=== PATIENT | male | born 1965 | race Two or more races ===

== ENCOUNTER 2016-10-30 09:56 | Day surgery (SDC) | payer OTHER ==
[2016-10-22 15:26] VITALS: BMI 26.6
[2016-10-30 10:34] VITALS: RESP 16; TEMP 97.7
[2016-10-30] MEDS: LACTATED RINGERS 1,000 ML IV ONE ×2 (10:39→10:59)
[2016-10-30] MEDS ORDERED: MIDAZOLAM 2 MG/2 ML VIAL ONE (11:05)
[2016-10-30] MEDS ORDERED: fentaNYL (PF) 50 MCG/ML 2 ML AMP ONE (11:05)
--- NOTE | 2016-10-30 11:19 | P.PCN ---
Date of Procedure: 10/30/16 Anesthesia: MAC Surgeon: Eduard Mackenzie Pathology: none sent Condition: stable Disposition: PACU Description of Procedure: PREOPERATIVE DIAGNOSIS: Cervical spondylosis without myelopathy, cervicogenic headache. POSTOPERATIVE DIAGNOSIS: same PROCEDURES: Diagnostic right C4, C5, C6 medial branch with fluoroscopic guidance ANESTHESIA: Local with 1% lidocaine; IV sedation with Versed and fentanyl EBL: Minimal PROCEDURE INDICATION: This is a patient with neck pain and headaches secondary to cervical arthropathy unresponsive to more conservative treatments. Patient had essentially no relief from cervical epidural steroid injection two months ago, presents for cervical MBB today. No use of blood thinners. PROCEDURE DESCRIPTION / TECHNIQUE: The patient was seen and identified in the preoperative area. Risks, benefits, complications, and alternatives were discussed with the patient (including but not limited to incomplete pain relief , bleeding, infection, nerve damage, and allergies to medications), the patient agreed to proceed with the procedure and signed the consent after all questions were answered. IV was started. Vital signs remained stable throughout the procedure. Patient was taken to the OR and time out was completed. The patient was placed in the prone position on the procedure table. A pillow was placed under the patients chest to increase the cervical interlaminar space. The cervical area was prepped and draped in the usual sterile fashion. Critical pause was taken. Vital signs were closely monitored during the procedure. Conscious sedation was used during the procedure to decrease patients anxiety. Using cross-table lateral fluoroscopy, the centroid of the trapezoid of right C4 , was identified, marked, and localized with 1% lidocaine. Subsequently, a 22 G spinal needle was advanced guided by fluoroscopy to the centroid of the trapezoid of C4. Needle tip position was confirmed at the centroid of the trapezoids of C4 with anteroposterior fluoroscopy. Subsequently, 1 ml of a 3 ml combination of 40 mg Kenalog and 2 ml of preservative-free Bupivacaine 0.5% was injected after negative aspiration for blood and CSF. Needle was then removed intact the same procedure was repeated at the right C5 and C6 levels. Needle was removed intact at each level, skin was cleansed, and bandages were applied. COMPLICATIONS: No acute complications. COMMENTS: DISPOSITION / PLANS: The patient was placed in a supine position and transferred to the recovery area in a stable condition for observation and was discharged from the recovery room after meeting discharge criteria. Home discharge instructions given to the patient by the staff. The patient was reexamined prior to discharge and there were no issues. The patient will schedule a follow up in clinic in 4-6 weeks.
[2016-10-30] MEDS ORDERED: IV FLUID CONTINUATION 1,000 ML IV ONE (11:32)
[2016-10-30] MEDS ORDERED: LACTATED RINGERS 1,000 ML IV SCH (12:15)
--- NOTE | 2016-10-30 12:20 | FL ---
EXAMINATION TYPE: FL guided pain mgmt statistic DATE OF EXAM: 10/30/2016 11:27 AM HISTORY: Pain rt side cervical facets 6 sec. fl time used
[2016-10-30 12:32] VITALS: BP 98/66; PULSE 68
== END 2016-10-30 12:43 | disposition home or self-care (01) ==
LOC: ORPAIN 09:56
PROVIDERS: ATTEND Anesthesiology
DX: M47.812 Spondylosis without myelopathy or radiculopathy, cervical region (principal); R51 Headache; I10 Essential (primary) hypertension; E78.5 Hyperlipidemia, unspecified; Z79.1 Long term (current) use of non-steroidal anti-inflammatories (NSAID); Z79.82 Long term (current) use of aspirin; Z79.891 Long term (current) use of opiate analgesic; Z79.899 Other long term (current) drug therapy
CPT/HCPCS: 64490; 64491; 64492; J2250; J3010

== ENCOUNTER → 2016-12-04 | Outpatient (CLI) | payer OTHER ==
[2016-12-04 14:50] VITALS: BP 123/87; PULSE 78; RESP 16
--- NOTE | 2016-12-05 19:02 | P.PN ---
Subjective This is follow-up visit for this patient with a history of severe and chronic neck pain, we have done interventional pain management injection, cervical epidural steroid injections under fluoroscopy guidance, and the patient reported that he had 0 benefit from an, and later on we did diagnostic medial branch blocks cervical area, and patient also had 0 benefit from from the medial branch block,, patient had MRI of the cervical spine which showed that patient had C6 7 posterior disc spur , and is currently on pain medications Physical Examinations : 1-Constitutiona : Cooperative , not in acute distress . 2-HEENT : nech ; supple , no Lymphadenopathy , no Thyromegaly , normal thyroid size . eyes : no ptosis , no icterus, no photophobia . ENT : normal of hearing , normal oropharynx , no Thrush . 3- Respiratory : Chest clear to auscultations Bilaterally , no wheezing , no Rhonchi . 4- Cardiovascular : regular rate and rhythem , S1 , S2 , no S3 , no S4. 5- Gastrointestinal : abdomen soft no tenderness , bowel sounds positive all four quadrents , no organomegally . 6- Genitourinary : Defferred . 7- neurologic : Cranial nerve II to XII intact , no focal neurological deffecit . 8-psychatric : alert , oriented X 3 , appropriate affect , intact judgment and insight . 9-Lymphatic : no Lymphadenopathy . 10- musculoskeltal : exams of the cervical spine = motor strength normal bilateral upper extremities facet loading test cervical area positive. exams of the Lumber spine = motor strength lower extremities ,thigh and legs .5/5 Assessment and plan = Cervical radiculopathy, cervical degenerative disc disease , patient had cervical epidural steroid injections and diagnostic medial branch block , Patient had no benefit from either , and patient is not a candidate for radiofrequency ablation of the medial branch , he had physical therapy in the past And he had no benefit from it, patient preferred to pursue the surgical option, and he wanted discussed the surgery with Dr. Levy - -medication management =1-Motrin 800 mg every 8 hours 2-[place] 7,5/325 every 6 hours Patient tried Neurontin and Zanaflex and baclofen none of them helped his pain Objective - Vital Signs Vital signs: Vital Signs Temp Pulse 78 12/04/16 14:40 Resp 16 12/04/16 14:40 BP 123/87 12/04/16 14:40 Pulse Ox 98 12/04/16 14:40 Intake & Output 12/04/16 12/05/16 12/05/16 18:59 06:59 18:59 Weight 79.379 kg
== END | disposition home or self-care (01) ==
LOC: PNWHC3 14:17
PROVIDERS: ATTEND Specialist
DX: M54.12 Radiculopathy, cervical region (principal); M50.30 Other cervical disc degeneration, unspecified cervical region; M46.02 Spinal enthesopathy, cervical region; Z79.899 Other long term (current) drug therapy
CPT/HCPCS: 99211

== ENCOUNTER → 2017-02-03 | Outpatient (CLI) | payer OTHER ==
[2017-02-03 13:25] VITALS: BP 119/84; PULSE 74; RESP 16
--- NOTE | 2017-02-03 13:52 | P.PN ---
Subjective This is follow-up visit for this patient with a history of severe and chronic neck pain, secondary to cervical disc protrusion and cervical spondylosis with cervical facet arthropathy, we have done interventional pain management injection, cervical epidural steroid injection and patient had no benefit from it, and later on we did, diagnostic medial branch block , and he did not benefit from the diagnostic medial branch block his pain was the same before and after the block, for this reason we did not proceed with the radiofrequency ablation of the medial branch, patient was referred to spine surgeon Dr. Levy, and the Dr. Levy he did not recommend surgical interventions , recommended physical therapy and neck braces, patient reported that he tried physical therapy and he did not benefit from it, he tried neck brace and it caused more pain, and he stopped using it , and his currently using pain medication 1-[place] 7.5/325-6 hours 2-Motrin 800 mg every 8 hours Patient denies any side effects of the medication, denies excessive drowsiness or sleepiness, denies suicidal ideation, and reports that the current pain medication is NOT helping To control the pain and improve activity of daily living Patient denies any motor or sensory deficit , patient denies any fever or night sweats, denies any change in the bowel movements or urination Physical Examinations : 1-Constitutiona : Cooperative , not in acute distress . 2-HEENT : nech ; supple , no Lymphadenopathy , no Thyromegaly , normal thyroid size . eyes : no ptosis , no icterus, no photophobia . ENT : normal of hearing , normal oropharynx , no Thrush . 3- Respiratory : Chest clear to auscultations Bilaterally , no wheezing , no Rhonchi . 4- Cardiovascular : regular rate and rhythem , S1 , S2 , no S3 , no S4. 5- Gastrointestinal : abdomen soft no tenderness , bowel sounds positive all four quadrents , no organomegally . 6- Genitourinary : Defferred . 7- neurologic : Cranial nerve II to XII intact , no focal neurological deffecit . 8-psychatric : alert , oriented X 3 , appropriate affect , intact judgment and insight . 9-Lymphatic : no Lymphadenopathy . 10- musculoskeltal : exams of the cervical spine = motor strength normal bilateral upper extremities facet loading test cervical area positive. exams of the Lumber spine = motor strength lower extremities ,thigh and legs .5/5 Assessment and plan = - Chronic neck pain pain secondary to cervical bulging disc disease , cervical spondylosis with facet arthropathy without myelopathy Status post cervical epidural steroid injection without any benefit and he had no benefit from the diagnostic medial branch block Patient was evaluated by a spine surgeon and he did not recommend surgical intervention , he tried physical therapy without benefit He tried neck brace without any benefit We'll refer him for a TENS unit trial , hopefully this will help to improve his pain control - chronic and current use of high-risk medication (Opioids). The patient was counseled about risk of opioid use, psychological risk associated with opioids and was orally counseled to not overuse , divert,or sell dictations to take medications as prescribed only , and to restore medication in safe location , and the patient counseled against driving while using narcotic medications, and also not to use alcohol or any illicit recreational drugs, the patient's verbalized understanding that the lack of compliance will result in failure to renew narcotic prescription ,and possible discharge from the clinic - diagnoses, prognosis, and treatment options including but not limited to physical therapy, surgical interventions, interventional therapies , and medication management including narcotics and adjuvant medication were discussed with the patient and all The questions answered Patient given prescription [place] 10/325 every 6 hours dispensed 90 with 1 refill , Motrin 800 mg every 8 hours dispense 90 with 1 refill Patient will be started on Lyrica 25 mg 3 times a day and he will follow up with the pain clinic in 2 months Objective - Vital Signs Vital signs: Vital Signs Temp Pulse 74 02/03/17 13:21 Resp 16 02/03/17 13:21 BP 119/84 02/03/17 13:21 Pulse Ox Intake & Output 02/02/17 02/03/17 02/03/17 18:59 06:59 18:59 Weight 79.379 kg
== END | disposition home or self-care (01) ==
LOC: PNWHC3 12:24
PROVIDERS: ATTEND Specialist
DX: M50.20 Other cervical disc displacement, unspecified cervical region (principal); M47.812 Spondylosis without myelopathy or radiculopathy, cervical region; M46.92 Unspecified inflammatory spondylopathy, cervical region; Z79.891 Long term (current) use of opiate analgesic; G89.29 Other chronic pain
CPT/HCPCS: 99211

== ENCOUNTER → 2017-03-31 | Outpatient (CLI) | payer OTHER ==
[2017-03-31 13:38] VITALS: BP 120/84; PULSE 64; RESP 16; TEMP 98.5
--- NOTE | 2017-04-01 09:56 | P.PN ---
Subjective this is follow-up visit for this 51 years old male, chronic history of severe neck pain, diagnosed with cervical degenerative disc disease and cervical spondylosis, done cervical epidural steroid injections, continue to have severe neck pain, also we have done diagnostic medial branch block cervical area, he had no benefit from it. For this reason we did not do the radiofrequency ablation of the medial branch cervical area, also the patient was referred for physical therapy ,and TENS unit. He had no benefit from it Was referred for evaluation by Dr. Levy , rhythmic spine surgeon and he did not recommend surgery, she'll continue to have severe neck pain, and is any motor or sensory deficits, as any change in the bowel movement or urination Objective - Vital Signs Vital signs: Vital Signs Temp 98.5 F 03/31/17 13:32 Pulse 64 03/31/17 13:32 Resp 16 03/31/17 13:32 BP 120/84 03/31/17 13:32 Pulse Ox Intake & Output 03/31/17 04/01/17 04/01/17 18:59 06:59 18:59 Weight 80.739 kg - Exam Physical Examinations : 1-Constitutiona : Cooperative , not in acute distress . 2-HEENT : nech ; supple , no Lymphadenopathy , normal thyroid size . eyes : no ptosis , no icterus, no photophobia . ENT : normal of hearing , normal oropharynx , no Thrush . 3- Respiratory : Chest clear to auscultations Bilaterally , no wheezing , no Rhonchi . 4- Cardiovascular : regular rate and rhythem , S1 , S2 , no S3 , no S4. 5- Gastrointestinal : abdomen soft no tenderness , bowel sounds positive all four quadrents , no organomegally . 6- Genitourinary : Defferred . 7- neurologic : Cranial nerve II to XII intact , no focal neurological deffecit . 8-psychatric : alert , oriented X 3 , appropriate affect , intact judgment and insight . 9-Lymphatic : no Lymphadenopathy . 10- musculoskeltal : cervical spine = motor stregnth in the deltoid and biceps, motor stregnth biceps and the wrist extensors (C6) . motor stregnth in the triceps muscle . deep tendon reflexes normal at the biceps , l normal at Brachioradialis normal at the triceps positive cervical facet loading test , Lumber spine = normal moter stegnth lower extremities ,thigh and legs .5/5 Assessment and Plan Plan: Assessment and plan = -Chronic neck pain secondary to cervical degenerative disc disease , cervical spondylosis with cervical facet arthropathy without myelopathy . -. She had no benefit from cervical epidural steroid injections and had no benefit from diagnostic medial branch block cervical area, no benefit from the physical therapy, spine surgeon did not recommend surgery, patient had no benefit from TENS unit -chronic and current use of high-risk medication (Opioids). -Patient denies any side effect of the medication, and the current medication helped the patient to control the pain and improve activity of daily living, The patient was counseled about risk of opioid use, psychological risk associated with opioids discussed with the patient, body mass index and exercise. Patient signed the narcotic agreement , and was orally counseled not to overuse , abuse , divert, or sell medications ,and take them as prescribed only , and the patient was counseled against driving and while you are using the narcotic medication also not to use alcohol or any illicit drugs and the patient verbalized understanding that lack of compliance and could result in failure to renew narcotics prescriptions and possible discharge from the clinic - diagnoses, prognosis, and treatment options including but not limited to physical therapy, surgical interventions, interventional therapies and medication management including narcotics and adjuvant medication were discussed with the patient and all questions answered to the patient's satisfaction. -medication refile =1-Increase Lyrica to 50 mg 3 times a day ( [place] 25 mg 3 times a day ) 2-continue [place] 10/325 every 6 hours, dispense 90 3-continue Motrin 800 mg 3 times a day UDS orderd today -procedure=none Time with Patient: Less than 30
== END ==
LOC: PNWHC3 13:01
PROVIDERS: ATTEND Specialist
DX: M50.30 Other cervical disc degeneration, unspecified cervical region (principal); M47.812 Spondylosis without myelopathy or radiculopathy, cervical region; M46.82 Other specified inflammatory spondylopathies, cervical region; Z79.891 Long term (current) use of opiate analgesic
CPT/HCPCS: 80307; G0480 ×2; G0463; 80349; 80356; 99211

== ENCOUNTER → 2017-04-29 | Outpatient (CLI) | payer OTHER ==
[2017-04-29 15:06] VITALS: BP 131/87; PULSE 73; RESP 18; TEMP 98.6
--- NOTE | 2017-04-29 15:19 | P.PN ---
Progress Note - Text Patient returns for followup for chronic neck pain with radiation to left arm. Patient underwent DORETHA and CMBB x 1, which provided very little relief. Patient continues on [place] medications for pain with some relief and Lyrica was increased at last visit with some benefit. Patient denies adverse drug effects from medications. Today, pt denies new-onset weakness, bowel/bladder incontinence, or any other signs or symptoms of cauda equina syndrome. There are no signs of acute intoxication, and no indications of medication diversion or overuse. In addition to above, 13-point review of systems is also negative for chest pain , shortness of breath, changes in vision, changes in hearing, new onset weakness , abdominal pain, diarrhea, extreme fatigue, malaise, fever, skin changes, homicidal or suicidal ideation, or bowel or bladder incontinence. Vital Signs: Reviewed in EMR Gen: WDWN, AAOx3, NAD HEENT: NCAT, EOMI, hearing grossly normal Pulm: resp unlabored Abd: soft, NT, ND Neck: supple, trachea midline Cervical paravertebral tenderness: + Cervical Facet tenderness: + bilateral, R >> L Spurling's: neg Upper extremity: decreased landscape and yardwork laborer strength secondary to pain Neuro: CN II-XII grossly intact, muscle strength lower extremities PRESERVED Imaging: Reviewed in EMR Assessment: 1. cervical spondylosis 2. cervical DDD 3. chronic pain syndrome Plan: 1. Explanation: Opioid and psychological risk scores were reviewed. Diagnoses , prognoses, and multiple treatment options including but not limited to physical therapy, interventional therapies, adjuvant medical therapies, narcotic medication therapies, and surgery were discussed with the patient and all questions were answered to the patient's satisfaction. 2. Opioid agreement: Patient has previously signed narcotic agreement, and was orally counseled to not overuse, abuse, divert, or cell medications, and to take them as prescribed by only 1 healthcare provider. The patient was also counseled to store opioid medications in a safe and preferably locked location. Patient was also counseled against driving or operating heavy equipment while using narcotic medications and also to not use alcohol or any illicit or recreational drugs. The patient verbalized understanding that lack of compliance with any of the above and likely result in failure to renew narcotic prescriptions, possible discharge from the clinic, and possible legal ramifications thereafter if indicated. 3. Counseling: The patient was counseled extensively on SMOKING CESSATION, BODY MASS INDEX, EXERCISE. Specifically, the patient was instructed regarding the importance of smoking cessation, obesity, and exercise in the context of both chronic pain and overall health. 4. Procedures: none for now 5. Consultations: None 6. Investigations: UDS + THC; repeat today 7. Medications: [place] 10/325 #90, Motrin 800 mg #90, Lyrica 50 mg #90 with no refills 8. Disposition: f/u for re-eval in 4 weeks PQRS measures: 1-Patient's medications are documented in the chart. 2-Tobacco use is positive, counseling given 3-Patient has not had a pneumococcal vaccine. 4-Advanced care planning discussed, patient unable to give. 5-Opioid contract signed with the patient. 6-Pain positive, follow-up visit or procedure scheduled 7-Patient's blood pressure measured and documented, and patient will follow up with the primary care due to hypertension. 8-Patient's weight was measured, and body mass index ABOVE the normal limits, and counseling was done. Patient instructed to follow up with PCP. 9-Patient WAS NOT identified as an unhealthy alcohol user.
== END ==
LOC: PNWHC3 14:16
PROVIDERS: ATTEND Anesthesiology
DX: M50.30 Other cervical disc degeneration, unspecified cervical region (principal); M47.812 Spondylosis without myelopathy or radiculopathy, cervical region; G89.4 Chronic pain syndrome; Z79.891 Long term (current) use of opiate analgesic; Z79.899 Other long term (current) drug therapy
CPT/HCPCS: 80307; G0480 ×2; G0463; 80356; 80364; 99211

== ENCOUNTER → 2017-05-27 | Outpatient (CLI) | payer OTHER ==
[2017-05-27 13:48] VITALS: BP 127/87; PULSE 70; RESP 16; TEMP 97.2
--- NOTE | 2017-05-27 14:14 | P.PN ---
Progress Note - Text This is a 51-year-old gentleman with axial neck pain with a diagnosis of cervical spondylosis. The patient did not respond to cervical epidural steroid injection neither to cervical medial branch block. The patient has been receiving Lyrica, [place] 10 mg 3 times a day and Motrin 800 mg 3 times a day for his pain. The cervical spine MRI showed mild degenerative changes. The last urine drug screen showed positive THC and negative for hydrocodone. The patient claims that he was warned at that time against using marijuana and he stopped doing that. To make sure that the result of negative hydrocodone in this test is accurate we might need to send out for confirmation test with GS/ MS technique. Today I will order another urine drug screen. I will give him prescription for [place] 10 mg, however I will decrease the dose to 2 pills a day instead of 3. i will give him prescription for 1 month only, also will increase his Lyrica dose to 75 mg 3 times a day. We will see the patient next month for reevaluation.
[2017-05-28 14:26] LABS: Mis test requested (Non-blood) HEROIN
== END | disposition home or self-care (01) ==
LOC: PNWHC3 13:19
PROVIDERS: ATTEND Anesthesiology
DX: M47.812 Spondylosis without myelopathy or radiculopathy, cervical region (principal)
CPT/HCPCS: G0480; G0463; 80307; 80356; 80364; 99211

== ENCOUNTER → 2017-06-24 | Outpatient (CLI) | payer OTHER ==
[2017-06-24 13:38] VITALS: BP 114/78; PULSE 60; RESP 16
--- NOTE | 2017-06-24 13:50 | P.PN ---
Progress Note - Text This is a 51-year-old male with axial neck pain due to degenerative changes in the cervical spine. This pain did not respond to previous interventional pain procedures including cervical epidural steroid injection and cervical medial branch blocks. Patient has been getting [place] twice a day plus Lyrica and Motrin. His urine drug screen was appropriate today and positive for hydrocodone and hydromorphone. last time the patient had the wrong results of the urine drug screen from a different patient in his chart. I asked the patient to try to go down the Motrin to 2 pills a day if possible and we will continue with his Luana and Lyrica. The patient complains of numbness in his hands and feet for a long time and he might need an EMG test done on the upper and lower extremities however I think we might need to refer him to neurology for more evaluation. He is alert oriented 3 in no apparent distress. He does not show any drug seeking behavior. He denies any suicidal ideation. We'll see the patient 2 months from now.
== END ==
LOC: PNWHC3 13:02
PROVIDERS: ATTEND Anesthesiology
DX: M47.812 Spondylosis without myelopathy or radiculopathy, cervical region (principal); Z79.891 Long term (current) use of opiate analgesic
CPT/HCPCS: 99211

== ENCOUNTER → 2017-10-12 | Outpatient (CLI) | payer OTHER ==
[2017-10-12 11:59] VITALS: BP 111/75; PULSE 63; RESP 16; TEMP 97.9
--- NOTE | 2017-10-12 12:13 | P.PN ---
Progress Note - Text Progress Note Date: 10/12/17 This is a 51-year-old male with history of cervical spondylosis without myelopathy and axial neck pain. The patient's pain has been relatively well controlled with a combination of [place] 10 mg twice a day and Lyrica 75 mg 3 times a day and Motrin 800 mg 2-3 times a day. The patient failed to respond to interventional pain procedures previously. His pain is worse at this time however he denies any weakness or numbness in the arms today. There are no new changes his physical exam since the last time we saw him. He denies any side effects to the [place] and he does not show any drug-seeking behavior at this time. His last urine drug screen was appropriate for the medications he takes. Today I will increase his Lyrica dose 200 mg 3 times a day and I will continue with [place] twice a day and Motrin 800 mg as needed for pain. The patient denies any paresthesia in the upper extremities or any weakness and he has not seen a neurologist. I told him it is not urgent at this point to see a neurologist because of his denial of any neurologic changes, however if any new neurologic symptoms appear then the patient may benefit from seeing a neurologist. We will see the patient 2 months from now.
== END ==
LOC: PNWHC3 11:36
PROVIDERS: ATTEND Anesthesiology
DX: M47.812 Spondylosis without myelopathy or radiculopathy, cervical region (principal); Z79.899 Other long term (current) drug therapy
CPT/HCPCS: 99211

== ENCOUNTER → 2017-12-07 | Outpatient (CLI) | payer OTHER ==
[2017-12-07 12:07] VITALS: BP 129/87; PULSE 76; RESP 16
--- NOTE | 2017-12-07 12:28 | P.PN ---
Progress Note - Text Progress Note Date: 12/07/17 This is a 52-year-old male with history of neck pain with radiation to the upper thoracic spine in between his shoulders. The patient denies any radiation of his pain to the upper extremities and he denies any numbness or tingling in the upper extremities. He also denies any bowel or bladder dysfunction. The pain gets worse by ambulation and by movement of his neck. This pain also wakes him up at night but he denies any weight loss recently. The patient has been taking [place] and Lyrica 300 mg a day and Motrin as needed for his pain. By physical exam he is alert oriented 3 in no apparent distress Neuro exam of the upper extremities within normal limits and symmetrical He has tenderness in the cervical and upper thoracic paravertebral areas and also at the spinal processes of the upper thoracic paravertebral. This patient did not respond to previous interventional pain procedures. The patient would like to try a special pillow to sleep on at night([employer] waterbase), I will also prescribe trazodone 50 mg to be taken at 1 or 2 pills at night. He is to continue using [place] twice a day ,Lyrica and Motrin as needed. We will see the patient back 2 months from now.
== END | disposition home or self-care (01) ==
LOC: PNWHC3 11:45
PROVIDERS: ATTEND Anesthesiology
DX: M54.12 Radiculopathy, cervical region (principal); Z79.891 Long term (current) use of opiate analgesic; Z79.899 Other long term (current) drug therapy; Z79.1 Long term (current) use of non-steroidal anti-inflammatories (NSAID)
CPT/HCPCS: 99211

== ENCOUNTER → 2018-02-10 | Outpatient (CLI) | payer OTHER ==
[2018-02-10 14:14] VITALS: BP 133/82; PULSE 66; RESP 18; TEMP 98.6
--- NOTE | 2018-02-10 15:02 | P.PN ---
Progress Note - Text Progress Note Date: 02/10/18 Patient returns for followup for chronic neck pain with radiation to left arm and has also had worsening numbness/tingling/[id number] sensations in bilateral feet. Patient had poor relief with two injections and does not any further procedures. Patient continues on [place] medications for pain with some relief and Lyrica was increased previously with some benefit. Patient denies adverse drug effects from medications. Today, pt denies new-onset weakness, bowel/bladder incontinence, or any other signs or symptoms of cauda equina syndrome. There are no signs of acute intoxication, and no indications of medication diversion or overuse. In addition to above, 13-point review of systems is also negative for chest pain , shortness of breath, changes in vision, changes in hearing, new onset weakness , abdominal pain, diarrhea, extreme fatigue, malaise, fever, skin changes, homicidal or suicidal ideation, or bowel or bladder incontinence. Vital Signs: Reviewed in EMR Gen: WDWN, AAOx3, NAD HEENT: NCAT, EOMI, hearing grossly normal Pulm: resp unlabored Abd: soft, NT, ND Neck: supple, trachea midline Cervical paravertebral tenderness: ++, R > L Cervical Facet tenderness: + bilateral, R > L Spurling's: neg Imaging: Reviewed in EMR Assessment: 1. cervical spondylosis 2. cervical DDD 3. chronic pain syndrome Plan: 1. Explanation: Opioid and psychological risk scores were reviewed. Diagnoses , prognoses, and multiple treatment options including but not limited to physical therapy, interventional therapies, adjuvant medical therapies, narcotic medication therapies, and surgery were discussed with the patient and all questions were answered to the patient's satisfaction. 2. Opioid agreement: Patient has previously signed narcotic agreement, and was orally counseled to not overuse, abuse, divert, or cell medications, and to take them as prescribed by only 1 healthcare provider. The patient was also counseled to store opioid medications in a safe and preferably locked location. Patient was also counseled against driving or operating heavy equipment while using narcotic medications and also to not use alcohol or any illicit or recreational drugs. The patient verbalized understanding that lack of compliance with any of the above and likely result in failure to renew narcotic prescriptions, possible discharge from the clinic, and possible legal ramifications thereafter if indicated. 3. Counseling: The patient was counseled extensively on SMOKING CESSATION, BODY MASS INDEX, EXERCISE. Specifically, the patient was instructed regarding the importance of smoking cessation, obesity, and exercise in the context of both chronic pain and overall health. 4. Procedures: none for now 5. Consultations: none 6. Investigations: UDS today 7. Medications: [place] 10/325 #60 with one refill, Motrin 800 mg #90 with two refills, Lyrica 100 mg #90 with one refill 8. Disposition: f/u for re-eval in 8 weeks. Will stop trazodone for this patient, who has history of severe marijuana abuse and dependence. I also counseled him re: tobacco use and chronic pain as indicated above. PQRS measures: 1-Patient's medications are documented in the chart. 2-Tobacco use is positive, counseling given 3-Patient has not had a pneumococcal vaccine. 4-Advanced care planning discussed, patient unable to give. 5-Opioid contract signed with the patient. 6-Pain positive, follow-up visit or procedure scheduled 7-Patient's blood pressure measured and documented, and patient will follow up with the primary care due to hypertension. 8-Patient's weight was measured, and body mass index ABOVE the normal limits, and counseling was done. Patient instructed to follow up with PCP. 9-Patient WAS NOT identified as an unhealthy alcohol user.
== END | disposition home or self-care (01) ==
LOC: PNWHC3 13:55
PROVIDERS: ATTEND Anesthesiology
DX: G89.4 Chronic pain syndrome (principal); M50.30 Other cervical disc degeneration, unspecified cervical region; M47.812 Spondylosis without myelopathy or radiculopathy, cervical region; E66.9 Obesity, unspecified; Z72.0 Tobacco use; Z79.891 Long term (current) use of opiate analgesic
CPT/HCPCS: G0480; G0463; 80307; 80349; 80356; 80364; 99211